=== PATIENT | male | born 1955 | race Caucasian/White ===

== ENCOUNTER → 2024-07-28 11:38 | Outpatient (BNVA) | payer MEDICARE, MEDICAID, SELFPAY | PROVIDERS: PCP Nurse Practitioner Family; Visit Provider Nurse Practitioner Family | DX: Z12.5 Encounter for screening for malignant neoplasm of prostate (principal); Z90.410 Acquired total absence of pancreas; Z90.49 Acquired absence of other specified parts of digestive tract; E55.9 Vitamin D deficiency, unspecified; D64.9 Anemia, unspecified; E56.9 Vitamin deficiency, unspecified | CPT/HCPCS: 80053; 80061; 81003; 82306; 82525; 82607; 82728; 82746; 83036; 83550; 83735; 84443; 84590; 84630; 85025; G0103 ==

== ENCOUNTER → 2024-08-06 10:33 | Outpatient (BNVA) | payer MEDICARE, MEDICAID, SELFPAY | PROVIDERS: PCP Nurse Practitioner Family; Visit Provider Nurse Practitioner Family | DX: R79.89 Other specified abnormal findings of blood chemistry (principal); Z90.410 Acquired total absence of pancreas; Z90.49 Acquired absence of other specified parts of digestive tract | CPT/HCPCS: 82728; 83550; 86141 ==

== ENCOUNTER → 2024-08-27 13:36 | Outpatient (BNVA) | payer MEDICARE, MEDICAID, SELFPAY | PROVIDERS: PCP Nurse Practitioner Family; Visit Provider Nurse Practitioner Family | DX: R79.89 Other specified abnormal findings of blood chemistry (principal); Z90.410 Acquired total absence of pancreas; Z90.49 Acquired absence of other specified parts of digestive tract | CPT/HCPCS: 85045 ==